=== PATIENT | male | born 1965 | race Caucasian/White ===

== ENCOUNTER → 2020-06-08 | Outpatient (CLI) | payer OTHER | LOC: LAB 14:52 | PROVIDERS: ATTEND Internal Medicine | DX: Z01.812 Encounter for preprocedural laboratory examination (principal); Z20.822 Contact with and (suspected) exposure to COVID-19 ==

== ENCOUNTER 2020-06-14 06:26 | Observation (INO) | payer OTHER ==
[2020-06-14] VITALS (8 sets, daily range): BP systolic 127–142; BP diastolic 68–87
[~2020-06-14] VITALS: Ht 180.3 cm; Wt 106.6 kg
[2020-06-14] MEDS ORDERED: ELIQUIS5 MG PO (07:14)
[2020-06-14] MEDS ORDERED: LEVEMIR100 UNIT/1 SUBQ (07:14)
[2020-06-14] MEDS ORDERED: COZAAR 25 MG TA25 M2 PO (07:15)
[2020-06-14] MEDS ORDERED: METFORMIN HCL500 M3 PO (07:16)
[2020-06-14] MEDS ORDERED: NITROSTAT0.4 M1 SUBLING (07:16)
[2020-06-14] MEDS ORDERED: LOVAZA1000 MG PO (07:17)
[2020-06-14] MEDS ORDERED: IMDUR 60 MG TAB60 M1 PO (07:18)
[2020-06-14] MEDS ORDERED: PRAVACHOL40 M1 PO (07:18)
[2020-06-14] MEDS ORDERED: JANUVIA100 MG PO (07:18)
[2020-06-14] MEDS ORDERED: TOPROL XL50 MG PO (07:19)
[2020-06-14] MEDS ORDERED: ASPIRIN325 PO (09:52)
[2020-06-14] MEDS ORDERED: EFFIENT10 MG PO (09:52)
--- NOTE | 2020-06-14 13:12 | CATHLAB ---
[facility] [place] [address] INVASIVE PROCEDURE REPORT Name: ELOY EISENBERG Room #: REG AUGUST Alonso.#: [id number] Admission: 06/14/20 Attend Phys: Lawrence Deshpande MD, Discharge: Date of : 63 Report #: [id number] THIS REPORT FOR: cc: Melo Cox Damon DO Lundgren, Craig H. MD [facility] ~ APPROVED REPORT Study performed: 06/14/2020 07:21:32 Patient Details Patient Status: Out-Patient Room #: The patient is a 55 year-old male Event Personnel Lawrence Deshpande Chapter Relations Administrator, Emperatriz Ball RTR Monitor, Anmol Nguyen RN RN, Naida Dang RN RN, Curtis Brush RTR Scrub Procedures Performed Art Access - R femoral artery* Left Heart Cath w/or w/o Coronaries [id number] [facility] VINH Place w/wo Plasty Single RCA 975791 Hemostasis w/ Mynx 88746 Initial Mod Sed Same Phys/QHP Gr5y 083061 35510 Mod Sed Same Phys/QHP Ea 605722 Procedure Narrative The patient was brought electively to the Cardiac Catheterization Laboratory and was prepped and draped in a sterile manner. The Right Groin^ was infiltrated with 1% Lidocaine subcutaneous anesthesia. A PINNACLE 6FR Sheath #[id number] sheath was inserted into the RFA^. Coronary angiography was performed using coronary diagnostic catheters. The right coronary system was accessed and visualized with a JR4 catheter. The left coronary system was accessed and visualized with a JL4 catheter. The left ventricle was accessed and visualized with a ANGLED PIGTAIL catheter. Left ventriculogram was performed in 30 degree projection. Closure device was deployed with a Fr MYNXGRIP 6/7F #[id number]. The patient tolerated the procedure well and there were no complications associated with the procedure. There was no hematoma. Intraoperative Conscious Sedation Sedation start time: 7:53 Case end Time: 8:54 Fentanyl 100 mcg Versed [address] [address] INVASIVE PROCEDURE REPORT Name: ELOY EISENBERG Room #: [facility] [id number] Admission: 06/14/20 Attend Phys: Lawrence Deshpande, Discharge: Date of : 63 Report #: [id number] Fluoro Time: 9.70 minutes Dose: DAP 41048.60 cGycm2 2832 mGy Contrast Type and Amount: Omnipaque 205 ml Coronary Angiography The patient's coronary anatomy is right dominant. Diagnostic Cath Left Main Normal left main LAD Variable 40-50% proximal to mid LAD plaquing Diagonal 1 Small to moderate sized first diagonal branch with 40% ostial stenosis Circumflex Large, nondominant circumflex comprised of a trifurcating marginal branch. Mild 20% proximal and mid vessel plaquing OM1 50% stenosis involving the origin of the superior limb of this trifurcating marginal branch Right Coronary Dominant right coronary with 95% moderately calcified mid vessel stenosis 50% stenosis involving the distal right coronary R PDA Mild plaquing at the origin of the posterior descending Left Ventriculography The left ventricle is normal in size with normal contractility. The left ventricular ejection fraction is estimated to be 60-65%. Left ventricular wall motion abnormalities are not present. There is no mitral insufficiency. Hemodynamics The aortic pressure is 151/56 mmHg with a mean of 99 mmHg. The left ventricular pressure is 164/12 mmHg with a mean of mmHg. The left ventricular end diastolic pressure is 30 mmHg. PCI Technique Lesion Anticoagulation was achieved with Heparin, Integrilin. Patient was preloaded with Effient. Percutaneous coronary intervention was performed on the mid right coronary artery. The lesion stenosis prior to intervention was 95% with VASU 3 flow. A LAUNCHER 6FR JR 4 #[id number] Guide Catheter was used to engage the right coronary ostium. A Luge Wire .014 x 182CM #[id number] Interventional Guidewire was used to cross the lesion. BALLOON DILATION A Balloon catheter Euphora RX 2.5 x 12 #[id number] was inserted and inflated up to 16.00atm for 29seconds. Additional Inflation: 18.00atm [address] [address] INVASIVE PROCEDURE REPORT Name: ELOY EISENBERG ROULA Room #: REG Digna#: [id number] Admission: 06/14/20 Attend Phys: Lawrence Deshpande, Discharge: Date of : 63 Report #: [id number] for 30seconds. Additional Inflation: 18.00atm for 31seconds. Additional Inflation: 18 Kavon for 14 Seconds. STENT DEPLOYMENT A drug-eluting stent RESOLUTE ALLA RX 3.0 X 22 #[id number] was inserted and inflated up to 16.00atm for 31seconds. POST STENT DEPLOYMENT BALLOON DILATION A Balloon catheter TREK NC RX 3.25 X 15 #[id number] was inserted and inflated up to 18.00atm for 28seconds. Additional Inflation: 20.00atm for 30seconds. Additional Inflation: 21.00atm for 26seconds. Additional Inflation: 21 Kavon for 16 Seconds. Final angiography reveals 0 % stenosis with VASU 3 flow. Conclusion 1. Normal global and regional left ventricular systolic function. EF 65% 2. Normal left main 3. Moderate LAD and circumflex disease 4. Severe mid right coronary stenosis stented with a 3.0 x 22mm Resolute stent, post-dilated to 3.5mm. Moderate distal right coronary disease Recommendations Cardiac Rehabilitation Referral Aggressive Medical Therapy <ELECTRONICALLY SIGNED> By: Lawrence Deshpande MD, FACC 06/14/201311 11 11 Lawrence Deshpande MD, FACC /INF
--- NOTE | 2020-06-14 16:41 | NUR ---
PT. ARRIVED AT THE FLOOR AROUND 1400; PT. OFF BED REST PER REPORT; ABLE TO WALK FROM WHEECHAIR TO BED WITHOUT ASSISTANCE; R. GROIN SIDE INTACT; NO HEMATOMA; C/D/I; EDUCATED ABOUT CALLING IF NOTICED SWELLING; HOLDING PRESSURE OVER GROIN WHEN COUGHING; ST. UNDERSTANDING; EDUCATED ABOUT FALL PRECAUTIONS; [facility] UNDERSTANDING; EDUCATED ABOUT USING URINAL WHEN VOIDING; [facility]ERSTANDING; SB-SR ON THE MONITOR; VS WNL; ADMISSION PERFOMED; EDUCATED ABOUT VISITOR POLICY; [facility] UNDERSTAND[facility]; ASSESSMENT CHARGED; FOLLOWING POC; WILL PASS ON REPORT;
--- NOTE | 2020-06-15 00:09 | NUR ---
assumed care at 1900, awake, alert and oriented, denies pain, r.groin cath site C/DI, no hematoma or bruising noted, pt upadlib, sr on the monitor at the beginning of shift, pt converted to afib at around 2145, heart rate controlled in the 70s, priscila when sleeping, assessments as charted, denies any concerns, will continue to monitor and follow poc; plan to discharge home today
[2020-06-15 04:21] VITALS: BP 139/83
[2020-06-15 05:57] LABS: HEMATOCRIT 47.5 % (42.0-52.0); HEMOGLOBIN 16.4 gm/dL (14.0-18.0); MCH 30.9 pg (26.0-34.0); MCHC 34.6 g/dL (28.0-37.0); MCV 89.3 fL (80.0-100.0); RBC 5.32 mil/uL (4.50-6.00); RDW 13.8 % (10.5-14.5); WBC 8.1 thou/uL (4.0-11.0)
[2020-06-15 06:30] LABS: POTASSIUM 3.8 mmol/L (3.5-5.1); TOTAL BILIRUBIN 0.6 mg/dL (0.2-1.0); TOTAL PROTEIN 7.4 g/dL (6.4-8.2); TROPONIN-I 0.11 ng/mL (<0.06)
[2020-06-15 07:44] VITALS: BP 144/82
[2020-06-15] MEDS ORDERED: CRESTOR40 MG PO (07:44)
--- NOTE | 2020-06-15 07:54 | D ---
[facility] [place] [address] DISCHARGE SUMMARY Name: ELOY EISENBERG Room #: 203-P [facility] M.R.#: [id number] Admission: 06/14/20 Attend Phys: Lawrence Deshpande MD, Discharge: Date of : 63 Report #: [id number] THIS REPORT FOR: cc: Melo Cox Damon DO Lundgren,Lawrence Tang MD FACC ~ DISCHARGE DIAGNOSES: 1. Unstable angina. 2. Severe coronary artery disease with stenting of the mid right coronary with a 3.0 x 22 mm Resolute medicated stent, postdilated to 3.5 mm; normal ejection fraction. 3. Diabetes. 4. Dyslipidemia. 5. Paroxysmal atrial fibrillation. 6. Hypertension. 7. Hypercoagulable. HISTORY OF PRESENT ILLNESS: For the complete details of the history of present illness, see dictated history and physical. Briefly, the patient is a 55-year-old gentleman with hypertension, diabetes, dyslipidemia, paroxysmal atrial fibrillation and extremely high coronary calcium score of over 4000. He presented with midsternal chest pain with associated shortness of breath and diaphoresis, highly suspicious for unstable angina. He is admitted for further evaluation including coronary angiography. HOSPITAL COURSE: The patient was admitted and underwent coronary angiography. The full details of this can be found under separate heading and dictation. In summary, left ventricular systolic function was normal. He was found to have very high-grade mid right coronary artery disease, which was stented with a 3.0 x 20 mm Resolute medicated stent, postdilated to 3.5 mm with a noncompliant balloon. He was treated with aspirin, Effient, Integrilin and heparin in the periprocedural setting. He had excellent groin hemostasis at the time of discharge. His other epicardial vessels demonstrated moderate diffuse calcific plaquing both in the LAD, circumflex, and in the distal right coronary. Aggressive medical therapy for this is recommended. DISCHARGE MEDICATIONS: Include apixaban 5 mg twice daily, Levemir insulin 45 units nightly, losartan 100 mg daily, Glucophage 1000 mg twice daily starting in 2 days, Lovaza 2 grams twice daily, rosuvastatin 40 mg daily, Januvia 100 mg daily, metoprolol succinate 50 mg daily, ASA 81 mg dialy x 1mo, Effient 10mg daily x 1 yr. DISCHARGE DIET: Low fat, low cholesterol, prudent diabetic diet. Arrangements were made for outpatient cardiac rehabilitation. [address] [address] DISCHARGE SUMMARY Name: ELOY EISENBERG Room #: 203-P [facility] M.R.#: [id number] Admission: 06/14/20 Attend Phys: Lawrence Deshpande MD, Discharge: Date of : 63 Report #: [id number] Medicines were reconciled. Follow up with Dr. Cox is directed. Follow up with myself in 4-6 weeks. DISCHARGE CONDITION: Stable and improved. <ELECTRONICALLY SIGNED> By: Lawrence Deshpande MD, [facility] 06/15/20 0754 1608 1630 Lawrence Deshpande MD, [facility] /nt
--- NOTE | 2020-06-15 08:59 | EKG ---
[address] [address] ELECTROCARDIOGRAM REPORT Name: ELOY EISENBERG Room #: 203-[facility]#: [id number] Admission: 06/14/20 Attend Phys: Lawrence Deshpande MD, Discharge: Date of : 63 Report #: [id number] [facility] Test Date: 2020-06-15 Test Time: 07:28:55 Pat Name: ELOY EISENBERG Department: Room: 203 P Gender: M Magnetometer Operator: STEPHAN : 1965 Requested By: Lawrence Deshpande Order Number: [id number] MD: Lawrence Deshpande Measurements Intervals [place] Rate: 81 P: [place]: QRS: 22 QRSD: 96 T: 2 QT: 396 QTc: 460 Interpretive Statements Atrial fibrillation Otherwise no significant abnormality No previous ECG available for comparison Electronically Signed On 06-15-2020 8:59:40 CDT by Lawrence Deshpande [email or web address] <ELECTRONICALLY SIGNED> By: Lawrence Deshpande MD, [facility] 06/15/20 0859 0728 0728 Lawrence Deshpande MD, FACC /EPI
--- NOTE | 2020-06-15 09:41 | NUR ---
RECEIVED PT'S CARE AROUND 0725; PT. ON BED; ALERT; DURING AM ASSESSMENT PT. AOX4; NO C/O PAIN; AM MEDICATIONS GIVEN; EDUCATED ABOUT IT; EDUCATED ABOUT D/C PROCESS; ST. UNDERSTANDING; AFIB ON THE MONITOR; DR. ARMENTA NOTIFIED BY NIGHT NURSE DURING AM ROUNDING; ASSESSMENT CHARGED; FOLLOWING POC; WILL WORK ON D/C PAPERS;
[2020-06-15 09:43] VITALS: BP 144/88
== END 2020-06-15 10:15 | disposition home or self-care (01) ==
LOC: CATH 06:26 → EROBS 08:33 → CATH 08:33 → 2N 14:44
PROVIDERS: ADMIT Internal Medicine; ATTEND Internal Medicine
DX: I25.110 Atherosclerotic heart disease of native coronary artery with unstable angina pectoris (principal); E11.9 Type 2 diabetes mellitus without complications; E78.5 Hyperlipidemia, unspecified; I10 Essential (primary) hypertension; I48.0 Paroxysmal atrial fibrillation

== ENCOUNTER 2020-10-30 08:47 | Inpatient (IN) | payer OTHER ==
[~2020-10-30] VITALS: Ht 177.8 cm; Wt 103.4 kg
[~2020-10-30 08:47] MED LIST: ASPIRIN325 PO; COZAAR 25 MG TA25 M2 PO; CRESTOR40 MG PO; EFFIENT10 MG PO; ELIQUIS5 MG PO; IMDUR 60 MG TAB60 M1 PO; JANUVIA100 MG PO; LEVEMIR100 UNIT/1 SUBQ; LOVAZA1000 MG PO; METFORMIN HCL500 MG PO; NITROSTAT0.4 M1 SUBLING; PRAVACHOL40 M1 PO; TOPROL XL50 MG PO
[2020-10-30 08:49] VITALS: BP 127/71
[2020-10-30 09:12] LABS: ABSOLUTE NEUTROPHILS 4.8 thou/uL (1.4-8.2); BASOPHILS 1.1 % (0.0-2.0); EOSINOPHILS 1.5 % (0.0-3.0); HEMATOCRIT 40.1 % (42.0-52.0); LYMPHOCYTES 28.2 % (24.0-44.0); MCH 31.3 pg (26.0-34.0); MCHC 34.9 g/dL (28.0-37.0); MCV 89.6 fL (80.0-100.0); MONOCYTES 9.3 % (1.0-8.0); PLATELET COUNT 189 thou/uL (150-400); POLYS 59.9 % (36.0-66.0); RBC 4.48 mil/uL (4.50-6.00); RDW 13.5 % (10.5-14.5)
[2020-10-30 09:24] LABS: ANION GAP 8 mmol/L (7-16); BUN 18 mg/dL (7-18); CALCIUM 9.1 mg/dL (8.5-10.1); CHLORIDE 105 mmol/L (98-107); CO2 25 mmol/L (21-32); GLUCOSE 238 mg/dL (74-106); POTASSIUM 4.6 mmol/L (3.5-5.1); SODIUM 138 mmol/L (136-145)
[2020-10-30 09:33] LABS: ALBUMIN 4.4 g/dL (3.4-5.0); SGOT 17 U/L (15-37); SGPT 31 U/L (30-65); TOTAL BILIRUBIN 0.7 mg/dL (0.2-1.0); TOTAL PROTEIN 7.7 g/dL (6.4-8.2); TROPONIN-I <0.06 ng/mL (<0.06)
--- NOTE | 2020-10-30 09:50 | EKG ---
[place] [address] [facility] [place] [address] ELECTROCARDIOGRAM REPORT Name: ELOY EISENBERG Room #: PRE [facility].#: [id number] Admission: Attend Phys: Discharge: Date of : 63 Report #: [id number] [facility] ED Test Date: 2020-10-30 Test Time: 08:51:57 Pat Name: ELOY EISENBERG Department: Room: Gender: M Bellows Charger Assembler: jaylin : 1965 Requested By: Maureen Arroyo Order Number: [id number] MD: Poncho Duarte Measurements Intervals [place] Rate: 52 P: 46 PA: 217 QRS: 13 QRSD: 105 T: -11 QT: 441 QTc: 411 Interpretive Statements Sinus rhythm Prolonged PA interval RSR' in V1 or V2, right VCD or RVH Borderline T abnormalities, inferior leads Compared to ECG 06/15/2020 07:28:55 First degree AV block now present Right ventricular hypertrophy now present RSR' in V1 or V2 now present T-wave abnormality now present Atrial fibrillation no longer present Electronically Signed On 10-30-2020 9:50:00 CDT by Poncho Duarte [email or web address] <ELECTRONICALLY SIGNED> By: Poncho Duarte MD, [facility] 10/30/20 0950 0851 0851 Poncho Duarte MD, [facility] /EPI
[2020-10-30] MEDS ORDERED: ROSUVASTATIN CA40 MG PO (15:37)
[2020-10-30 16:56] VITALS: BP 113/51
[2020-10-30 16:58] VITALS: BP 112/61
--- NOTE | 2020-10-30 17:08 | 2DMMODE ---
[facility] [place] [address] 2 D/M-MODE ECHOCARDIOGRAM Name: ELOY EISENBERG Room #: 170-1 ADM IN M.R.#: [id number] Admission: 10/30/20 Attend Phys: Julius Toscano MD Discharge: Date of : 63 Report #: [id number] THIS REPORT FOR: cc: Melo Cox Damon DO Lundgren, Craig H. MD [facility] ~ APPROVED REPORT Study performed: 10/30/2020 12:58:26 EXAM: Comprehensive 2D, Doppler, and color-flow Echocardiogram Patient Location: ER Status: routine BSA: 2.17 HR: 50 bpm BP: 122/74 mmHg Rhythm: NSR/Jack Other Information Study Quality: Good Indications Chest Pain Hx: CAD, PCI, PAF, HTN, HLP, DM. 2D Dimensions RVDd: 39.23 mm IVSd: 10.68 (7-11mm) LVOT Diam: 20.84 (18-24mm) LVDd: 53.99 mm PWd: 9.81 (7-11mm) Ascending Ao: 33.41 (22-36mm) LVDs: 34.10 (25-40mm) Left Atrium: 39.93 (27-40mm) Aortic Root: 30.33 mm Volumes Left Atrial Volume (Systole) Single Plane 4CH: 42.09 mL Single Plane 2CH: 62.86 mL LA ESV Index: 26.00 mL/m2 Aortic Valve AoV Peak Levi.: 1.72 m/s AO Peak Gr.: 11.77 mmHg LVOT Max P.85 mmHg LVOT Max V: 1.40 m/s [facility] [address] [email or web address] [address] 2 D/M-MODE ECHOCARDIOGRAM Name: ELGIN,DALE ROULA Room #: [address] [place] [address] [place] [facility].#: [id number] Admission: 10/30/20 Attend Phys: Julius Toscano, Discharge: Date of : 63 Report #: [id number] ANGELIQUE Vmax: 2.78 cm2 Mitral Valve E/A Ratio: 1.7 MV Decel. Time: 206.49 ms MV E Max Levi.: 0.75 m/s MV A Levi.: 0.45 m/s MV PHT: 59.88 ms IVRT: 87.66 ms Pulmonary Valve PV Peak Levi.: 1.15 m/s PV Peak Gr.: 5.33 mmHg Pulmonary Vein P Vein S: 0.43 m/s P Vein A: 0.22 m/s P Vein D: 0.39 m/s P Vein A Dur.: 110.7 msec P Vein S/D Ratio: 1.10 Tricuspid Valve TR Peak Levi.: 2.48 m/s RAP Estimate: 5.00 mmHg TR Peak Gr.: 25.00 mmHg PA Pressure: 30.00 mmHg Left Ventricle The left ventricle is normal size. There is normal LV segmental wall motion. There is normal left ventricular wall thickness. Left ventricular systolic function is normal. LVEF is 60%. The left ventricular diastolic function is normal. Right Ventricle The right ventricle is normal size. The right ventricular systolic function is normal. Atria The left atrium size is normal. The right atrium size is normal. Aortic Valve The aortic valve is normal in structure, trileaflet. No aortic regurgitation is present. There is no aortic valvular stenosis. Mitral Valve The mitral valve is normal in structure. Mild mitral regurgitation. No evidence of mitral valve stenosis. [facility] [address] [place] [address] 2 D/M-MODE ECHOCARDIOGRAM Name: ELOY EISENBERG Room #: 170-1 [facility] IN M.R.#: [id number] Admission: 10/30/20 Attend Phys: Julius Toscano, Discharge: Date of : 63 Report #: [id number] Tricuspid Valve The tricuspid valve is normal in structure. Mild tricuspid regurgitation. Estimated pulmonary artery pressure of 30mmHg. Pulmonic Valve The pulmonary valve is normal in structure. There is no pulmonic valvular regurgitation. Great Vessels The aortic root is normal in size. The ascending aorta is normal in size. IVC is normal in size and collapses >50% with inspiration. Pericardium There is no pericardial effusion. <Conclusion> Left ventricular systolic function is normal. There is normal LV segmental wall motion. LVEF is 60%. The left ventricular diastolic function is normal. The aortic valve is normal in structure, trileaflet. No aortic regurgitation or stenosis. The mitral valve is normal in structure. Mild mitral regurgitation. Mild tricuspid regurgitation. Estimated pulmonary artery pressure of 30mmHg. There is no pericardial effusion. <ELECTRONICALLY SIGNED> By: Lawrence Deshpande MD, [facility] 10/30/201706 06 06 Lawrence Deshpande MD, FACC /INF
[2020-10-30 18:00] VITALS: BP 112/70
[2020-10-30 19:56] VITALS: BP 115/65
--- NOTE | 2020-10-30 20:08 | NUR ---
ADMITTED THIS PATIENT FROM ED AT 1800H.PATIENT IS CONSCIOUS AND ORIENTED.ON ROOM AIR BREATHING SPONTANEOUSLY.NOT IN PAIN OR DISTRESS.KEPT COMFORTABLE IN BED.ADMISSION STILL TO BE COMPLETED, HANDED OVER TO THE REAL ESTATE UTILIZATION OFFICER.
[2020-10-31 04:45] VITALS: BP 119/74
--- NOTE | 2020-10-31 08:12 | NUR ---
PATIENTS CARES WERE ASSUMED AT SHIFT CHANGE. PATIENT WAS ASSESSED AND MEDS WERE PASSED . PATIENT DID SLEEP MOST OF THIS SHIFT. PATIENT DID C/O CHEST PAIN AT BED SIDE REPORT. PRIOR TO THAT TIME PATIENT HAD DENIED ANY CHEST PAIN. ROUNDS WERE DONE, THE BED ALARM IS ON. THE BED IS IN A LOW AND LOCKED POSITION
[2020-10-31 08:30] LABS: HEMATOCRIT 42.5 % (42.0-52.0); HEMOGLOBIN 14.7 gm/dL (14.0-18.0); MCHC 34.6 g/dL (28.0-37.0); MCV 89.5 fL (80.0-100.0); RBC 4.75 mil/uL (4.50-6.00); RDW 13.6 % (10.5-14.5); WBC 8.1 thou/uL (4.0-11.0)
[2020-10-31 08:45] LABS: ANION GAP 10 mmol/L (7-16); BUN 14 mg/dL (7-18); CALCIUM 8.9 mg/dL (8.5-10.1); CHLORIDE 107 mmol/L (98-107); CO2 26 mmol/L (21-32); GLUCOSE 252 mg/dL (74-106); POTASSIUM 4.7 mmol/L (3.5-5.1); SODIUM 143 mmol/L (136-145); TROPONIN-I <0.06 ng/mL (<0.06)
[2020-10-31 08:56] VITALS: BP 132/79
[2020-10-31 10:55] VITALS: BP 111/69
--- NOTE | 2020-10-31 12:11 | NUR ---
pt up in bed, call light with in reach, pleasant, educated on medication, labs etc. no distress or pain at time.
[2020-10-31 16:00] VITALS: BP 101/59
--- NOTE | 2020-10-31 18:49 | NUR ---
pt up in bed watching tv, no distress, no cp.
[2020-10-31 20:53] VITALS: BP 112/67
[2020-10-31 23:00] VITALS: BP 99/58
[2020-11-01 01:24] LABS: GLYCOHEMOGLOBIN (HGB A1C) 9.4 % (4.8-5.6)
[2020-11-01 04:44] VITALS: BP 104/68
--- NOTE | 2020-11-01 08:52 | NUR ---
PT RETURNED FROM DIGITAL CAMERA TECHNICIAN AT APPROX 0830. HEPARIN ORDER PER FACILITY ENVIRONMENTAL TECHNICIAN NOTED. DR ARMENTA CONTACTED TO CLARIFY AND CONFIRM ORDER OF 400U/HR. ORDER CONFIRMED, WILL FOLLOW FURTHER ORDERS. R GROIN INTACT, MYNX CLOSURE, NO HEMATOMA. CONT TO MONITOR.
--- NOTE | 2020-11-01 08:54 | CATHLAB ---
[facility] [place] [address] INVASIVE PROCEDURE REPORT Name: ELOY EISENBERG Room #: 205-P ADM IN M.R.#: [id number] Admission: 10/30/20 Attend Phys: Julius Toscano MD Discharge: Date of : 63 Report #: [id number] THIS REPORT FOR: cc: Melo Cox Damon DO Lundgren, Craig H. MD [facility] ~ APPROVED REPORT Study performed: 11/01/2020 07:02:29 Patient Details Patient Status: In-Patient Room #: 205 The patient is a 55 year-old male Event Personnel Lawrence Deshpande Er Registrar, Gissel Turner RTR, TRANSMISSION BUILDER Monitor, Buddy Dong RN RN, Arvin Franks RTR Scrub Procedures Performed Art Access - R femoral artery* Left Heart Cath w/or w/o Coronaries [id number] [facility] Hemostasis w/ Mynx 73649 Initial Mod Sed Same Phys/QHP Gr5y 890286 24654 Mod Sed Same Phys/QHP Ea 156537 Indication Chest pain Procedure Narrative The patient was brought electively to the Cardiac Catheterization Laboratory and was prepped and draped in a sterile manner. The Right Groin^ was infiltrated with 1% Lidocaine subcutaneous anesthesia. A PINNACLE 6FR Sheath #[id number] sheath was inserted into the RFA^. Coronary angiography was performed using coronary diagnostic catheters. The right coronary system was accessed and visualized with a JR4 catheter. The left coronary system was accessed and visualized with a JL4 catheter. The left ventricle was accessed and visualized with a ANGLED PIGTAIL catheter. Left ventriculogram was performed in 30 degree projection. Closure device was deployed with a 6 Fr MYNXGRIP 6/7F #[id number]. The patient tolerated the procedure well and there were no complications associated with the procedure. There was no hematoma. Intraoperative Conscious Sedation Sedation start time: 07:46 Case end Time: [facility] [address] [place] [address] INVASIVE PROCEDURE REPORT Name: ELOY EISENBERG ROULA Room #: 205-P [facility] IN ..#: [id number] Admission: 10/30/20 Attend Phys: Julius Toscano, Discharge: Date of : 63 Report #: [id number] 08:14 Fentanyl 50 mcg Versed 1 mg Fluoro Time: 1.30 minutes Dose: DAP 8046.90 cGycm2 1025 mGy Contrast Type and Amount: Omnipaque 135 ml Coronary Angiography The patient's coronary anatomy is right dominant. Diagnostic Cath Left Main Normal left main LAD Moderate proximal LAD calcification with long, variable 50 to 65-70% proximal stenosis Diagonal 1 Small to moderate-sized first diagonal branch with 50% ostial stenosis OM1 Very small first marginal branch without significant disease OM2 Large trifurcating second marginal branch with 85% ostial stenosis involving superior limb Right Coronary Dominant right coronary with 90% proximal intrastent stenosis 75% mid vessel stenosis Subtotal distal right coronary before the origin of the posterior descending and posterolateral branches R PDA Mild to moderate proximal PDA plaquing Left Ventriculography The left ventricle is normal in size with normal contractility. The left ventricular ejection fraction is estimated to be 60%. Left ventricular wall motion abnormalities are not present. There is 1+ mitral insufficiency. Hemodynamics The aortic pressure is 104/52 mmHg with a mean of 70 mmHg. The left ventricular pressure is 124/6 mmHg with a mean of mmHg. The left ventricular end diastolic pressure is 21 mmHg. Conclusion 1. Normal global and regional left ventricular systolic function. EF 60% 2. Normal left main 3. Severe three-vessel coronary disease Recommendations [facility] [address] [place] [address] INVASIVE PROCEDURE REPORT Name: ELOY EISENBERG ALAN Room #: 205-P [facility] IN .R.#: [id number] Admission: 10/30/20 Attend Phys: Julius Toscano, Discharge: Date of : 63 Report #: [id number] Cardiac Rehabilitation Referral CABG <ELECTRONICALLY SIGNED> By: Lawrence Deshpande MD, [facility] 11/01/20 0854 0854 0854 Lawrence Deshpande MD, FACC /INF
[2020-11-01 09:05] VITALS: BP 111/68
[2020-11-01 10:05] LABS: ABSOLUTE NEUTROPHILS 4.9 thou/uL (1.4-8.2); BASOPHILS 0.4 % (0.0-2.0); EOSINOPHILS 1.5 % (0.0-3.0); HEMATOCRIT 42.5 % (42.0-52.0); HEMOGLOBIN 14.9 gm/dL (14.0-18.0); LYMPHOCYTES 31.5 % (24.0-44.0); MCH 31.6 pg (26.0-34.0); MCHC 35.1 g/dL (28.0-37.0); MCV 90.1 fL (80.0-100.0); MONOCYTES 7.4 % (1.0-8.0); PLATELET COUNT 185 thou/uL (150-400); POLYS 59.2 % (36.0-66.0); RBC 4.72 mil/uL (4.50-6.00); RDW 13.7 % (10.5-14.5); WBC 8.3 thou/uL (4.0-11.0)
[2020-11-01 10:14] LABS: CALCIUM 8.8 mg/dL (8.5-10.1); POTASSIUM 4.1 mmol/L (3.5-5.1)
[2020-11-01 10:22] LABS: ALBUMIN 4.2 g/dL (3.4-5.0); TOTAL BILIRUBIN 0.6 mg/dL (0.2-1.0); TOTAL PROTEIN 6.9 g/dL (6.4-8.2)
--- NOTE | 2020-11-01 10:57 | NUR ---
Nutrition: pt admitted with CP and is S/P cath noted may need CABG. Seen due to high risk screen poor intake and weight loss. PMH: CAD, stent, HTN, DM, HLD. A1C 9.4, BG 208-346. Pt reports weight loss of 17# from UBW was intentional over the past 5 months due to improved eating habits. Appetite has been fine. Denies education needs at this time. When diet resumes, REC heart healthy, carb controlled. Will follow for additional needs. Low risk
[2020-11-01 11:30] LABS: INR 1.02; PROTIME 11.1 Seconds (10.5-12.1)
[2020-11-01 11:40] VITALS: BP 104/64
[2020-11-01 12:14] LABS: URINE BILIRUBIN NEGATIVE (Negative); URINE BLOOD NEGATIVE (Negative); URINE CLARITY CLEAR; URINE COLOR YELLOW; URINE GLUCOSE-RANDOM* TRACE (Negative); URINE KETONES NEGATIVE (Negative); URINE LEUKOCYTES-REFLEX NEGATIVE (Negative); URINE NITRITE-REFLEX NEGATIVE (Negative); URINE PROTEIN (DIPSTICK) NEGATIVE (Negative); URINE SPECIFIC GRAVITY <= 1.005 (1.005-1.035); URINE UROBILINOGEN 0.2 E.U./dl (0.2-1.0)
[2020-11-01 15:41] VITALS: BP 119/59
[2020-11-01 19:42] VITALS: BP 104/58
--- NOTE | 2020-11-01 19:53 | NUR ---
PT CONT TO DENY CP, VSS. HEPARIN GTT CONT PER PROTOCOL. PLAN FOR CABG. SR TELE. UP AD CASANDRA TERRENCE WELL. DENIES CURRENT NEEDS. CONT POC. REPORT GIVEN TO WILL JORGE.
[2020-11-01 23:33] VITALS: BP 98/57
[2020-11-02 00:06] LABS: GLYCOHEMOGLOBIN (HGB A1C) 9.3 % (4.8-5.6)
[2020-11-02 03:55] VITALS: BP 96/57
[2020-11-02 07:48] VITALS: BP 104/63
[2020-11-02 11:22] VITALS: BP 132/61
--- NOTE | 2020-11-02 13:05 | NUR ---
Case opened to follow for dc planning. Crutcher Helper visited with the pt at bedside and cm role introduced. The pt is A&ox4 and lives indep with his and children. He works fulltime and has ins through his employer. His pcp is Dr. Melo Cox. The pt has had a previous heart stent and had outpt cardiac rehab at [facility]. He would like to go there again. He denies any dc concerns and has a recliner at home. He has good support. He is a little anxious about open heart surgery tomorrow. Support provided. Will reassess for dc planning needs postop.
--- NOTE | 2020-11-02 14:58 | HC ---
[facility] [place] [address] CONSULTATION Name: ELOY EISENBERG Room #: 205-P ADM IN M.R.#: [id number] Admission: 10/30/20 Attend Phys: Julius Toscano MD Discharge: Date of : 63 Report #: [id number] THIS REPORT FOR: cc: Melo Cox,Kirby De Los Santos MD ~ DATE OF SERVICE: 11/01/2020 We were asked to see the patient by Dr. Deshpande. HISTORY OF PRESENT ILLNESS: The patient is a 55-year-old with coronary artery disease. The patient had a stent placed in the right coronary artery in 05/2020 for what would be described as unstable angina. The patient has had a recrudescence of angina in the last 2 weeks and coronary artery angiography shows important 3-vessel disease. There is 65% mid LAD stenosis, 80% circumflex lesion and 90% right coronary stenosis. Left ventricular function is satisfactory. PAST MEDICAL HISTORY: Significant for diabetes mellitus and hypertension. SOCIAL HISTORY: Positive for tobacco use in the past. FAMILY HISTORY: Positive for coronary artery disease. Father had bypass surgery. MEDICATIONS: At home includes losartan, metoprolol and statin. The patient also has a history of paroxysmal atrial fibrillation for which she takes Xarelto. The patient has been on Effient since the stent placement. As mentioned medication includes Eliquis, insulin, losartan, metformin, sitagliptin, Januvia, metoprolol, rosuvastatin, Effient and aspirin. ALLERGIES: None known. REVIEW OF SYSTEMS: CONSTITUTIONAL: Denies fever or chills. EYES: Denies vision change. HENT: Denies headache, hearing problems. CARDIAC: As mentioned unstable angina. He has occasional atrial fibrillation, but he states that this is asymptomatic. GASTROINTESTINAL: No nausea, vomiting, diarrhea or blood. GENITOURINARY: No urgency, frequency or blood. MUSCULOSKELETAL: Denies bone or joint problems. SKIN: Denies rash or infection. NEUROLOGIC: Denies motor or sensory dysfunction. ENDOCRINE: Denies goiter tremor. [facility] [address] [address] CONSULTATION Name: ELOY EISENBERG ROULA Room #: 205-[facility] IN ..#: [id number] Admission: 10/30/20 Attend Phys: Julius Toscano MD Discharge: Date of : 63 Report #: [id number] HEMATOLOGIC: Denies rash or easy bruisability despite the anticoagulation. PHYSICAL EXAMINATION GENERAL: The patient is lying in bed after cardiac catheterization, appears comfortable. VITAL SIGNS: Temperature 36.8, heart rate 61, blood pressure 111/68, respiratory rate 16. HEENT: No scleral icterus. No arcus. NECK: No mass, no bruit. CHEST: Clear to auscultation. HEART: Rhythm regular, no murmur. ABDOMEN: Protuberant, but soft. EXTREMITIES: No clubbing, cyanosis or edema. VASCULAR: 2+ popliteal pulses, 2+ dorsalis pedis pulses bilaterally. MUSCULOSKELETAL: No bone or joint asymmetry or deformity. NEUROLOGIC: No motor or sensory loss. PSYCHIATRIC: Shows insight into problem, oriented x3 and appropriate. ASSESSMENT AND PLAN: The patient has important 3-vessel coronary disease including recurrent stenosis in the right coronary at the site of previous stent. We have recommended coronary artery bypass surgery in the setting of diabetes mellitus and severe 3-vessel disease. Risks and details were discussed. Options and alternatives were reviewed. The patient understands all of this and wishes to proceed. We will try to arrange surgery for 11/03/2020 and do our preoperative studies in the interim. Thank you for the consult. <ELECTRONICALLY SIGNED> By: Kirby Daily MD 11/02/20 1458 0949 2147 Kirby Daily MD /nt
[2020-11-02 15:42] VITALS: BP 128/85
[2020-11-02 19:54] VITALS: BP 130/74
--- NOTE | 2020-11-02 20:23 | NUR ---
PT IS AXOX4, PLEASANT. DENIES PAIN, VSS, AFEBRILE, SR 1AVB ON THE MONITOR. PT IS ON HEPARIN GTT, LAST APTT 42. CURRENT HEPARIN GTT AT 11.97ML/HR, 11.97U/K/HR. PT UP AD CASANDRA TO TOILET, STEADY GAIT. CARDIOLOGY CONSULTED, DR MOLINA CONSULTED. PT TO HAVE CABG ON 11/03. PT CONSENT OBTAINED AND IN CHART. PT COMMUNICATED UNDERSTANDING FOR PRE PROCEDURE PREPARATIONS. LOW FALL PRECAUTIONS IN PLACE. NO CONCERNS AT THIS TIME.
[2020-11-03] VITALS (20 sets, daily range): BP systolic 90–116; BP diastolic 50–76
--- NOTE | 2020-11-03 07:09 | NUR ---
ASSESSMENTS CHARTED, MEDS CHARTED GIVEN. PATIENT UP AT CASANDRA IN ROOM DURING SHIFT. TOOK HEXADINE SHOWER LAST NIGHT AND THIS MORNING. NPO SINCE MIDNIGHT FOR CABG THIS MORNING. PREOP CALLED AROUND 0630 AND PICKED UP PATIENT AROUND 0700.
[2020-11-03 13:23] LABS: HEMATOCRIT 31.7 % (42.0-52.0); MCH 31.3 pg (26.0-34.0); MCHC 34.8 g/dL (28.0-37.0); MCV 90.1 fL (80.0-100.0); RBC 3.52 mil/uL (4.50-6.00); RDW 13.6 % (10.5-14.5); WBC 14.5 thou/uL (4.0-11.0)
[2020-11-03 13:40] LABS: INR 1.25; PROTIME 13.5 Seconds (10.5-12.1)
[2020-11-03 13:42] LABS: APTT 26.1 Seconds (24.5-32.8)
[2020-11-03 13:53] LABS: POC BE 1 mmol/L (-2.0 to +3.0); POC CA IONIZED 4.6 mg/dL (4.5-5.3); POC GLUCOSE 153 mg/dL (70-99); POC HEMOGLOBIN 10.9 g/dL (14.0-18.0); POC SODIUM 139 mmol/L (136-145); POC pCO2 37.3 mmHg (35.0-45.0); POC pH 7.433 (7.360-7.450)
[2020-11-03 13:53] LABS: POC BE 1 mmol/L (-2.0 to +3.0); POC CA IONIZED 4.4 mg/dL (4.5-5.3); POC GLUCOSE 143 mg/dL (70-99); POC HCO3 25.9 mmol/L (22.0-26.0); POC HEMOGLOBIN 10.2 g/dL (14.0-18.0); POC POTASSIUM 4.7 mmol/L (3.5-5.1); POC SODIUM 138 mmol/L (136-145); POC pCO2 41.9 mmHg (35.0-45.0); POC pH 7.399 (7.360-7.450)
[2020-11-03 13:53] LABS: POC BE 3 mmol/L (-2.0 to +3.0); POC GLUCOSE 181 mg/dL (70-99); POC HCO3 28.3 mmol/L (22.0-26.0); POC HEMOGLOBIN 12.9 g/dL (14.0-18.0); POC POTASSIUM 5.1 mmol/L (3.5-5.1); POC SODIUM 139 mmol/L (136-145); POC pCO2 46.5 mmHg (35.0-45.0); POC pH 7.393 (7.360-7.450)
[2020-11-03 13:54] LABS: POC BE 1 mmol/L (-2.0 to +3.0); POC CA IONIZED 4.8 mg/dL (4.5-5.3); POC GLUCOSE 165 mg/dL (70-99); POC HCO3 25.9 mmol/L (22.0-26.0); POC HEMOGLOBIN 11.6 g/dL (14.0-18.0); POC POTASSIUM 4.7 mmol/L (3.5-5.1); POC SODIUM 140 mmol/L (136-145); POC pCO2 43.2 mmHg (35.0-45.0); POC pH 7.387 (7.360-7.450)
[2020-11-03 13:54] LABS: POC BE -2 mmol/L (-2.0 to +3.0); POC CA IONIZED 5.1 mg/dL (4.5-5.3); POC GLUCOSE 161 mg/dL (70-99); POC HCO3 23.1 mmol/L (22.0-26.0); POC HEMOGLOBIN 10.5 g/dL (14.0-18.0); POC POTASSIUM 3.9 mmol/L (3.5-5.1); POC SODIUM 141 mmol/L (136-145); POC pCO2 40.5 mmHg (35.0-45.0); POC pH 7.364 (7.360-7.450)
[2020-11-03 13:54] LABS: POC BE -1 mmol/L (-2.0 to +3.0); POC CA IONIZED 4.7 mg/dL (4.5-5.3); POC GLUCOSE 164 mg/dL (70-99); POC HCO3 24.3 mmol/L (22.0-26.0); POC HEMOGLOBIN 11.2 g/dL (14.0-18.0); POC POTASSIUM 4.1 mmol/L (3.5-5.1); POC SODIUM 142 mmol/L (136-145); POC pCO2 42.6 mmHg (35.0-45.0); POC pH 7.364 (7.360-7.450)
[2020-11-03 13:54] LABS: POC BE -1 mmol/L (-2.0 to +3.0); POC CA IONIZED 4.7 mg/dL (4.5-5.3); POC GLUCOSE 175 mg/dL (70-99); POC HCO3 24.3 mmol/L (22.0-26.0); POC HEMOGLOBIN 10.9 g/dL (14.0-18.0); POC POTASSIUM 4.6 mmol/L (3.5-5.1); POC SODIUM 141 mmol/L (136-145); POC pCO2 39.4 mmHg (35.0-45.0); POC pH 7.398 (7.360-7.450)
[2020-11-03 13:54] LABS: POC BE 0 mmol/L (-2.0 to +3.0); POC CA IONIZED 5.9 mg/dL (4.5-5.3); POC GLUCOSE 172 mg/dL (70-99); POC HCO3 25.2 mmol/L (22.0-26.0); POC HEMOGLOBIN 10.2 g/dL (14.0-18.0); POC POTASSIUM 4.4 mmol/L (3.5-5.1); POC SODIUM 139 mmol/L (136-145); POC pCO2 40.3 mmHg (35.0-45.0); POC pH 7.403 (7.360-7.450)
[2020-11-03 13:54] LABS: POC BE 2 mmol/L (-2.0 to +3.0); POC CA IONIZED 4.8 mg/dL (4.5-5.3); POC GLUCOSE 181 mg/dL (70-99); POC HCO3 27.3 mmol/L (22.0-26.0); POC HEMOGLOBIN 10.5 g/dL (14.0-18.0); POC POTASSIUM 4.6 mmol/L (3.5-5.1); POC SODIUM 140 mmol/L (136-145); POC pCO2 44.2 mmHg (35.0-45.0); POC pH 7.399 (7.360-7.450)
--- NOTE | 2020-11-03 14:30 | NUR ---
Patient arrived from OR to ICU, sedated with OR staff at bedside and DEFENSIVE SECONDARY COACH's at bedside.
[2020-11-03 14:37] LABS: BE(vivo) -4.1 mmol/L (-2 to +3); HCO3 22.6 mmol/L (22.0-26.0); PCO2 47.9 mmHg (35.0-45.0); PO2 100.8 mmHg (80.0-100.0); pH 7.292 (7.360-7.450); sO2 96.9 % (92.0-98.0)
--- NOTE | 2020-11-03 14:54 | NUR ---
Dr. Daily present in room, pacemaker turned off by Physician at this time. RR increased to 14 on ventilator by RT per Dr. Daily, after ABG results noted to him.
[2020-11-03 14:56] LABS: HEMATOCRIT 33.4 % (42.0-52.0); HEMOGLOBIN 11.5 gm/dL (14.0-18.0); MCH 31.1 pg (26.0-34.0); MCHC 34.5 g/dL (28.0-37.0); MCV 90.3 fL (80.0-100.0); RBC 3.7 mil/uL (4.50-6.00); RDW 13.3 % (10.5-14.5); WBC 19.4 thou/uL (4.0-11.0)
[2020-11-03 15:03] LABS: CALCIUM 8.3 mg/dL (8.5-10.1); CREATININE 0.9 mg/dL (0.7-1.3); POTASSIUM 4.3 mmol/L (3.5-5.1)
[2020-11-03 15:05] LABS: MAGNESIUM 2.1 mg/dL (1.8-2.4)
[2020-11-03 15:10] LABS: INR 1.08; PROTIME 11.7 Seconds (10.5-12.1)
[2020-11-03 15:10] LABS: BE(vivo) -4.2 mmol/L (-2 to +3); HCO3 21.7 mmol/L (22.0-26.0); PCO2 42.4 mmHg (35.0-45.0); sO2 96.1 % (92.0-98.0)
[2020-11-03 15:11] LABS: APTT 35.2 Seconds (24.5-32.8)
[2020-11-03 15:11] LABS: pH 7.326 (7.360-7.450)
--- NOTE | 2020-11-03 15:30 | NUR ---
1530- patient switched from RADHA to Levophed, per titration order. Patient came from pacu with RADHA infusing slowly.
--- NOTE | 2020-11-03 15:45 | NUR ---
1545- Patient family present in room, his was updated on plan of care and patient status.
--- NOTE | 2020-11-03 16:06 | NUR ---
1606- Patient waking up and following commands, nods yes/no to simple questions. Denies pain at this time. Remains drowsy, precedex titrated down.
[2020-11-03 16:51] LABS: BE(vivo) -4.6 mmol/L (-2 to +3); HCO3 20.9 mmol/L (22.0-26.0); PCO2 40.4 mmHg (35.0-45.0); PO2 134.1 mmHg (80.0-100.0); pH 7.332 (7.360-7.450); sO2 98.5 % (92.0-98.0)
--- NOTE | 2020-11-03 17:10 | NUR ---
1619- Cpap trial started. 1700- ABG results post cpap trial called to Dr. Daily by Kecia TIERNEY. Orders to extubate patient. 1710- Patient extubated to face shield 50%. Patient awakens easily, follows commands.
[2020-11-04] VITALS (9 sets, daily range): BP systolic 100–120; BP diastolic 51–63
[2020-11-04 05:20] LABS: CALCIUM 7.8 mg/dL (8.5-10.1); CREATININE 0.8 mg/dL (0.7-1.3); MAGNESIUM 1.9 mg/dL (1.8-2.4)
[2020-11-04 05:24] LABS: POTASSIUM 3.9 mmol/L (3.5-5.1)
[2020-11-04 05:28] LABS: MCH 31.6 pg (26.0-34.0); MCHC 35.3 g/dL (28.0-37.0); MCV 89.4 fL (80.0-100.0); RBC 2.8 mil/uL (4.50-6.00); RDW 13.4 % (10.5-14.5); WBC 11.1 thou/uL (4.0-11.0)
[2020-11-04 05:33] LABS: HEMOGLOBIN 8.8 gm/dL (14.0-18.0)
--- NOTE | 2020-11-04 06:27 | NUR ---
Patient stable overnight. Came off Levophed at 0400. SBP 120's. Heart rate and rhythm stable. Oxygenation stable. Currently on 2L per NC. Insulin gtt with frequent accuchecks. See flowsheet. Pain medication given with moderate relief. Patient doing well with incentive spirometry. U/O moderate. Chest tube drainage form meds 530 for the 12 hours and 100 fron the pleural. am labs reviewed. Patient is progressing well towards goals. See documetation on interventions for assessment details.
--- NOTE | 2020-11-04 08:30 | NUR ---
Assummed care pt's assessment done see [facility]. Monitor show sr to afib on the monitor. Afebrile, pt states they gave me some pain medication but zI don't think it working. Encouraged pt to eat his protein and do his IS as often as possible. Will cont to monitor and work toward the POC.
--- NOTE | 2020-11-04 12:00 | NUR ---
No changes to his assessment will cont, to monitor. Pt up to the chair with assist. vandana well. evcouraged to use his IS. at the bedside. Updated on everything. Questions answered. Dr Pride here to see.
--- NOTE | 2020-11-04 12:21 | EKG ---
[address] [address] ELECTROCARDIOGRAM REPORT Name: ELOY EISENBERG ALAN Room #: 248-P ADM IN M.R.#: [id number] Admission: 10/30/20 Attend Phys: Julius Toscano MD Discharge: Date of : 63 Report #: [id number] [facility] Test Date: 2020-11-03 Test Time: 18:04:21 Pat Name: ELOY EISENBERG Department: Room: 248 Gender: M Market Director: FSCHWALBE : 1965 Requested By: Murphy Sevilla Order Number: [id number] MD: Selvin Toscano Measurements Intervals [place] Rate: 68 P: 42 HI: 254 QRS: 14 QRSD: 90 T: -14 QT: 411 QTc: 438 Interpretive Statements Sinus rhythm Prolonged HI interval Abnormal R-wave progression, early transition Borderline T abnormalities, inferior leads Compared to ECG 10/30/2020 08:51:57 Electronically Signed On 11-04-2020 12:20:58 CDT by Selvin Toscano [email or web address] <ELECTRONICALLY SIGNED> By: Selvin Toscano MD 11/04/20 1220 1804 1804 Selvin Toscano MD /EPI
--- NOTE | 2020-11-04 12:24 | EKG ---
[address] [employer] [place] [address] ELECTROCARDIOGRAM REPORT Name: ELGIN,ELOY ROULA Room #: 248-P ADM IN M.R.#: [id number] Admission: 10/30/20 Attend Phys: Julius Toscano MD Discharge: Date of : 63 Report #: [id number] [facility] Test Date: 2020-11-04 Test Time: 07:35:23 Pat Name: ELOY EISENBERG Department: Room: 248 P Gender: M Youth Care Professional: CHELY : 1965 Requested By: Murphy Sevilla Order Number: [id number] MD: Selvin Toscano Measurements Intervals [place] Rate: 76 P: 35 RI: 162 QRS: 5 QRSD: 91 T: -2 QT: 421 QTc: 474 Interpretive Statements Sinus rhythm Abnormal R-wave progression, early transition ST elevation suggests acute pericarditis Compared to ECG 11/03/2020 18:04:21 Electronically Signed On 11-04-2020 12:24:40 CDT by Selvin Toscano [email or web address] <ELECTRONICALLY SIGNED> By: Selvin Toscano MD 11/04/20 1224 4 4 Selvin Toscano MD /REJI
--- NOTE | 2020-11-04 16:00 | NUR ---
Pt still in the chair still draining quite abit from the meds. Dr Daily aware and we will leave them in for today. Pt informed.
--- NOTE | 2020-11-04 18:00 | NUR ---
Pt ate about 30% of his diet.
--- NOTE | 2020-11-04 19:00 | NUR ---
Report given to oncoming RN.
[2020-11-05] VITALS (11 sets, daily range): BP systolic 116–139; BP diastolic 52–92
[2020-11-05 05:42] LABS: HEMOGLOBIN 8.4 gm/dL (14.0-18.0); MCH 31.3 pg (26.0-34.0); MCHC 34.9 g/dL (28.0-37.0); MCV 89.7 fL (80.0-100.0); RBC 2.68 mil/uL (4.50-6.00); RDW 13.5 % (10.5-14.5); WBC 13.7 thou/uL (4.0-11.0)
[2020-11-05 05:55] LABS: ALBUMIN 3.1 g/dL (3.4-5.0); CREATININE 1.1 mg/dL (0.7-1.3); POTASSIUM 4.7 mmol/L (3.5-5.1); TOTAL BILIRUBIN 0.7 mg/dL (0.2-1.0); TOTAL PROTEIN 5.9 g/dL (6.4-8.2)
--- NOTE | 2020-11-05 06:00 | NUR ---
PT AWAKE AND ALERT VERY PLEASANT. VSS REMAINS IN CHRONIC AFIB. CHEST AND LEG DSG INTACT. TOTAL OF 210 CC CHEST TUBE DRG AND 1000 CC UO THIS SHIFT. PAIN MEDS PRN. PROGRESSING TOWARD GOALS. WILL CONT TO MONITOR
--- NOTE | 2020-11-05 10:30 | NUR ---
PATIENT'S CALLED IN AND UPDATED ON PATIENT'S STATUS AND POC. REASSURANCE GIVEN AND QUESTIONS ANSWERED.
--- NOTE | 2020-11-05 18:21 | NUR ---
ASSUMMED CARE OF THIS PATIENT FROM THE NIGHT NURSE, MALIK JORGE. PATIENT STATED THAT HE STILL HAD PAIN. PROGRESSED TOWARDS OUTCOME GOALS LINES AND MEDIALSTENAL CHEST TUBES WERE DC'D AND PATIENT IS UP IN THE CHAIR ABLE TO EAT TONIGHT.
[2020-11-06] VITALS (16 sets, daily range): BP systolic 110–150; BP diastolic 48–71
--- NOTE | 2020-11-06 06:00 | NUR ---
AWAKE AND AND ALERT. A VERY DELIGHTFUL GENTLEMAN REMAINS IN AFIB CONTROLLED CHEST WITH JOVANNI DSG INTACT. PACER WIRES CAPPED. 100 CC CHEST TUBE DRAINAGE THIS SHIFT. VOIDED 400 CC PROGRESSING TOWARD GOALS. ANXIOUS TO GET THE CHEST TUBE OUT. WILLCONT TO MONITOR.
--- NOTE | 2020-11-06 10:52 | NUR ---
Chart review. Post op CABG. Discussed during los, possible able to move out of icu today. still requiring 1L oxygen per nasal cannula. DCP home with outpt rehab.
--- NOTE | 2020-11-06 21:01 | NUR ---
PT IS AXOX4, PLEASANT. TRANSFERED FROM ICU THIS PM. VSS, AFEBRILE, SR ON THE MONITOR. PT IS POST OP DAY 3 OF CABG X6. JOVANNI DRESSING C/D/I, ORANGE LIGHT FLASHING. PA AWARE OF DRESSING AND WILL CHANGE ON 11/07 WITH FIRST SHOWER. PT L LEG WOUND COVERED. PT C/O OF PAIN IN CHEST AREA. CURRENTLY ON 1LNC FOR SOA WITH EXERTION. POC IS TO CONTINUE PAIN MGMT PT PROGRESSES TOWARDS D/C GOALS. PT/OT CONSULTED. CARDIOLOGY CONSULTED. LOW FALL PRECAUTIONS IN PLACE. NO CONCERNS AT THIS TIME.
[2020-11-07 04:41] VITALS: BP 123/69
[2020-11-07 05:20] LABS: RBC 2.78 mil/uL (4.50-6.00)
[2020-11-07 05:23] LABS: ABSOLUTE NEUTROPHILS 8.9 thou/uL (1.4-8.2); BASOPHILS 0.7 % (0.0-2.0); EOSINOPHILS 1.1 % (0.0-3.0); HEMATOCRIT 25.1 % (42.0-52.0); HEMOGLOBIN 8.8 gm/dL (14.0-18.0); LYMPHOCYTES 13.1 % (24.0-44.0); MCH 31.6 pg (26.0-34.0); MCHC 35.1 g/dL (28.0-37.0); MCV 90.2 fL (80.0-100.0); MONOCYTES 11.5 % (1.0-8.0); PLATELET COUNT 210 thou/uL (150-400); POLYS 73.6 % (36.0-66.0); RDW 13.7 % (10.5-14.5); WBC 12.1 thou/uL (4.0-11.0)
[2020-11-07 06:09] LABS: ALBUMIN 2.8 g/dL (3.4-5.0); CALCIUM 8.1 mg/dL (8.5-10.1); CREATININE 0.9 mg/dL (0.7-1.3); POTASSIUM 4.1 mmol/L (3.5-5.1); TOTAL BILIRUBIN 0.8 mg/dL (0.2-1.0); TOTAL PROTEIN 6.2 g/dL (6.4-8.2)
[2020-11-07 07:00] VITALS: BP 125/61
[2020-11-07 12:00] VITALS: BP 115/60
[2020-11-07 15:00] VITALS: BP 124/62
--- NOTE | 2020-11-07 16:24 | NUR ---
PT OOB TO AMBULATE WITH CARDIAC REHAB AND THERAPY THIS SHIFT. PT COMPLETED SHOWER WITH OT. INCISION WOUND DRESSINGS CHANGED PER SURGEON ORDERS, NO DRAINAGE/ODOR NOTED. PT DENIES SOB W/ ADL'S THIS SHIFT, PT TITRATED TO RA. PT DENIES PAIN AT THIS TIME. ALL SAFETY MEASURES IN PLACE AT THIS TIME.
[2020-11-07 20:24] VITALS: BP 133/58
[2020-11-07 23:42] VITALS: BP 118/58
--- NOTE | 2020-11-08 02:44 | NUR ---
ASSUMED PT CARE AT 1900, PT IS AWAKE, ALERT AND ORIENTED, REMAINS SR ON TELE WITH 1DAVB, DENIES PAIN, STILL SOB WITH EXERTION, ENCOURAGED TO USE IS MULTIPLE TIMES, ATLEAST AN HR WHILE AWAKE, STATES UNDERSTANDING, JOVANNI DRESSING INTACT, NO DRAINAGE, MEDS GIVEN PER EMAR, NO NEEDS AT THIS TIME, PROGRESSING WELL TOWARDS POC
[2020-11-08 05:56] VITALS: BP 133/63
[2020-11-08 08:25] VITALS: BP 130/59
[2020-11-08] MEDS ORDERED: PACERONE 200 M200 M1 PO (08:51)
[2020-11-08] MEDS ORDERED: ADULT LOW DOSE81 MG PO (08:59)
[2020-11-08 11:44] VITALS: BP 115/56
[2020-11-08 13:04] VITALS: BP 115/56
--- NOTE | 2020-11-08 13:43 | NUR ---
ASSUMED CARE SHIFT CHANGE. VSS. DENIES PAIN. O2 SATS WNL RA. SOB WITH ACTIVITY, IS ENCOURAGED, PT COMPLIANT. STERNAL DRESSING CDI. L LEG HARVEST DRSNGS CDI. DC ORDERS. DISCUSSED WITH PT AND SPOUSE, COMMUNICATING UNDERSTANDING. IV REMOVED. TELE REMOVED. PT LEFT UNIT WITH ALL BELONGINGS ACCOMPANIED BY SPOUSE.
--- NOTE | 2020-11-14 11:52 | O ---
[facility] [place] [address] OPERATIVE REPORT Name: ELOY EISENBERG Room #: 218-P [facility] IN M.R.#: [id number] Admission: 10/30/20 Attend Phys: Julius Toscano MD Discharge: 11/08/20 Date of : 63 Report #: [id number] THIS REPORT FOR: cc: Melo Cox,Kirby De Los Santos MD ~ cc: Lawrence Deshpande MD [facility] DATE OF SERVICE: 11/03/2020 PREOPERATIVE DIAGNOSES: Coronary artery disease and paroxysmal atrial fibrillation. POSTOPERATIVE DIAGNOSES: Coronary artery disease and paroxysmal atrial fibrillation. OPERATION: Coronary artery bypass x 6 including left internal mammary artery to left anterior descending artery, saphenous vein to diagonal, marginal 2 and marginal 4 and saphenous vein to acute marginal branch of the right coronary and posterior descending branch of the right coronary artery and endoscopic harvest, left greater saphenous vein, and application of left atrial appendage clip. ANESTHESIA: General. INDICATIONS: The patient is a 55-year-old with coronary artery disease. The patient had stent placement in May, but has had a recrudescence of symptoms and has a recurrent right coronary stenosis that is extensive and not reasonably dilatable. In addition, there is LAD and circumflex marginal disease. Left ventricular function is satisfactory. The patient also has paroxysmal atrial fibrillation. FINDINGS AND TECHNIQUE: After general anesthesia was established, left greater saphenous vein was harvested using an endoscopic approach and prepared for use as a conduit. Exposure was obtained through median sternotomy. Left internal mammary artery was harvested from chest wall. Pericardial well was made. Cannulation sutures were placed. Heparin was given. Aorta was cannulated. Right atrium was cannulated. Cardioplegia needle was positioned in the aortic root. Retrograde cardioplegia catheter was placed in the coronary sinus. Cardiopulmonary bypass was established. The aorta was cross clamped. Antegrade and retrograde cardioplegia were given. Ice was poured in the pericardial well. The heart was stopped. During electromechanical arrest. Initially, the left atrial appendage clip was applied. The base of the clip was measured and a 35 mm clip was selected. This [facility] [address] [place] [address] OPERATIVE REPORT Name: ELOY EISENBERG ROULA Room #: 218-P [facility] IN M.R.#: [id number] Admission: 10/30/20 Attend Phys: Julius Toscano MD Discharge: 11/08/20 Date of : 63 Report #: [id number] was placed as far at the base of the appendage as we could manage and then the clip was deployed and when it was found to be in good position, the applicator device was removed. The distal anastomoses were performed. Cold cardioplegia was given. An end-to-side anastomosis was made between vein and the posterior descending branch of the right coronary. Cold cardioplegia was given. The same segment of vein was sewn in qsvo-kx-fajn fashion to large acute marginal artery that was isolated by disease. This was an end-to-side anastomosis. Cold cardioplegia was given. A separate segment of vein was sewn in end-to-side fashion to the most distal branch of the large marginal that provided most of the blood flow to the oblique margin of the heart. I called this the fourth marginal. I suppose you could call the third branch of the large second marginal. After this was complete, cold cardioplegia was given. The same segment of vein was sewn in vwwh-us-zlvy fashion to second marginal or what could be termed the first branch of the large second marginal. Cold cardioplegia was given. The same segment of vein was sewn in feoy-cx-zydh fashion to a moderate first diagonal artery that had a 50% stenosis. Cold cardioplegia was given. Left internal mammary artery was sewn in end-to-side fashion to left anterior descending artery, although the lumen of the LAD was satisfactory. There was clearly thick atheroma through the vessel. The anastomosis was checked with the temperature technique and the Doppler. Cold cardioplegia was given. Two proximal anastomoses were performed and these were complete. Warm retrograde cardioplegia was given followed by warm continuous blood through the coronary sinus. When this infusion was complete, the crossclamp was removed. De-airing maneuvers were performed. The anastomoses were inspected and found to be satisfactory. As the patient warmed, nice cardiac activity resumed, chest tubes and pacing wires were placed. A marker was placed around the proximal anastomoses. When the patient was warmed, she was weaned from cardiopulmonary bypass. Venous cannula was removed. Protamine was given. The aortic cannula was removed. Flows were measured in the bypass grafts. When hemostasis was satisfactory, chest was irrigated with antibiotic solution and closed in the usual fashion. It should be mentioned, the platelets were given as the patient was on Effient and empirically, there was some platelet dysfunction. [facility] [address] [place] [address] OPERATIVE REPORT Name: ELOY EISENBERG Room #: 218-P DIS IN M.R.#: [id number] Admission: 10/30/20 Attend Phys: Julius Toscano MD Discharge: 11/08/20 Date of : 63 Report #: [id number] The patient tolerated the procedure well and was taken to the Intensive Care Unit in good condition. All counts were reported as correct. <ELECTRONICALLY SIGNED> By: Kirby Daily MD 11/14/20 1152 1445 1732 Kirby Daily MD /nt
== END 2020-11-08 13:40 | disposition home or self-care (01) | DRG 233 ==
LOC: ER 08:47 → 2N 10:26 → EROBS 10:26 → 2N 17:12 → TBA 11-03 07:35 → ICU 11-03 14:47 → 2N 11-06 14:20
PROVIDERS: Emergency Medicine; Internal Medicine; Physician Assistant; Surgery Vascular Surgery; ADMIT Internal Medicine; ATTEND Internal Medicine
PROC: B2111ZZ Fluoroscopy of Multiple Coronary Arteries using Low Osmolar Contrast (ICD-10-PCS; principal; 2020-11-01)
PROC: 4A023N7 Measurement of Cardiac Sampling and Pressure, Left Heart, Percutaneous Approach (ICD-10-PCS; principal; 2020-11-01)
PROC: B2151ZZ Fluoroscopy of Left Heart using Low Osmolar Contrast (ICD-10-PCS; principal; 2020-11-01)
PROC: 02L70CK Occlusion of Left Atrial Appendage with Extraluminal Device, Open Approach (ICD-10-PCS; 2020-11-03)
PROC: 06BQ4ZZ Excision of Left Saphenous Vein, Percutaneous Endoscopic Approach (ICD-10-PCS; 2020-11-03)
PROC: 30233R1 Transfusion of Nonautologous Platelets into Peripheral Vein, Percutaneous Approach (ICD-10-PCS; 2020-11-03)
PROC: 021309W Bypass Coronary Artery, Four or More Arteries from Aorta with Autologous Venous Tissue, Open Approach (ICD-10-PCS; 2020-11-03)
PROC: 02100Z9 Bypass Coronary Artery, One Artery from Left Internal Mammary, Open Approach (ICD-10-PCS; 2020-11-03)
PROC: 30233M1 Transfusion of Nonautologous Plasma Cryoprecipitate into Peripheral Vein, Percutaneous Approach (ICD-10-PCS; 2020-11-03)
PROC: 5A1221Z Performance of Cardiac Output, Continuous (ICD-10-PCS; 2020-11-03)
PROC: 30233N1 Transfusion of Nonautologous Red Blood Cells into Peripheral Vein, Percutaneous Approach (ICD-10-PCS; 2020-11-03)
PROC: 4A133J1 Monitoring of Arterial Pulse, Peripheral, Percutaneous Approach (ICD-10-PCS; 2020-11-03)
PROC: 03HY32Z Insertion of Monitoring Device into Upper Artery, Percutaneous Approach (ICD-10-PCS; 2020-11-03)
PROC: 4A133B1 Monitoring of Arterial Pressure, Peripheral, Percutaneous Approach (ICD-10-PCS; 2020-11-03)
DX: I25.110 Atherosclerotic heart disease of native coronary artery with unstable angina pectoris (principal); E43 Unspecified severe protein-calorie malnutrition; I50.33 Acute on chronic diastolic (congestive) heart failure; D68.59 Other primary thrombophilia; T82.855A Stenosis of coronary artery stent, initial encounter; I48.0 Paroxysmal atrial fibrillation; E11.9 Type 2 diabetes mellitus without complications; E78.5 Hyperlipidemia, unspecified; I10 Essential (primary) hypertension; E78.00 Pure hypercholesterolemia, unspecified; Y83.8 Other surgical procedures as the cause of abnormal reaction of the patient, or of later complication, without mention of misadventure at the time of the procedure; Z20.822 Contact with and (suspected) exposure to COVID-19; Z95.5 Presence of coronary angioplasty implant and graft; Z79.4 Long term (current) use of insulin; Z79.01 Long term (current) use of anticoagulants; Z79.899 Other long term (current) drug therapy; Z87.891 Personal history of nicotine dependence; Y92.89 Other specified places as the place of occurrence of the external cause
CPT/HCPCS: 10078; 10081; 47000; 47001; 47002; 47297; 48889; 50010; 50011; 50249; 50668; 51301; 52259; 52287; 53327; 53358; 54118; 56455; 56524; 56525; 56526; 56527; 56528; 56531; 56534; 56668; 56719; 56760; 56898; 57093; 57100; 57116; 57167; 58585; 58901; 58918; 62110; 62950; 83006